=== PATIENT | female | born 1990 | race Hispanic/Latino ===

== ENCOUNTER 2020-03-29 13:25 | Emergency (ER) | payer SELFPAY ==
[~2020-03-29] VITALS: Ht 165.1 cm; Wt 127.3 kg
[2020-03-29] MEDS ORDERED: PROZAC20 MG PO (13:59)
[2020-03-29 15:04] VITALS: BP 112/55
== END 2020-03-29 15:14 | disposition home or self-care (01) | DRG 880 ==
LOC: ED 13:25
DX: F41.9 Anxiety disorder, unspecified (principal); F32.9 Major depressive disorder, single episode, unspecified; T43.226A Underdosing of selective serotonin reuptake inhibitors, initial encounter; Z91.138 Patient's unintentional underdosing of medication regimen for other reason